=== PATIENT | female | born 2000 ===

== ENCOUNTER 2022-11-02 15:51 | Emergency (ER) | payer SELFPAY ==
[2022-11-02] MEDS ORDERED: Lidocaine/Epineph/Tetracaine 3 ML Syringe TOP STA (16:12)
[2022-11-02] MEDS ORDERED: Acetaminophen/HYDROcodone 325-5 MG Tab PO STA (16:13)
[2022-11-02] MEDS ORDERED: Lidocaine 1% with EPINEPHrine 1:100,000 10 ML MDV INJECT ONE (17:05)
[2022-11-02] MEDS ORDERED: Lidocaine 1% with EPINEPHrine 1:100,000 20 ML MDV INJECT ONE (17:15)
[2022-11-02] MEDS ORDERED: Bacitracin Oint 1 GM U/D Packet TOP ONE (17:49)
== END 2022-11-02 18:10 | disposition home or self-care (01) ==
LOC: MW.ED 15:51
DX: S91.311A Laceration without foreign body, right foot, initial encounter (principal); W26.8XXA Contact with other sharp object(s), not elsewhere classified, initial encounter
CPT/HCPCS: 12002; 99282; A9270; 99283; J3490